=== PATIENT | male | born 1955 | race Caucasian/White ===

== ENCOUNTER 2017-03-26 14:31 | Emergency (ER) | payer BC, OTHER ==
[~2017-03-26] VITALS: Ht 182.9 cm; Wt 105.0 kg
[2017-03-26 14:42] VITALS: BP 157/93; PULSE 101; RESP 16; TEMP 99.2; O2SAT 95
[2017-03-26 15:48] LABS: BLOOD, URINE TRACE (NEG); GLUCOSE,URINE NEG (NEG); KETONE, URINE NEG (NEG); NITRITE,URINE NEG (NEG)
[2017-03-26] MEDS ORDERED: AMBI10TA PO (15:55)
[2017-03-26] MEDS ORDERED: ASPI81TA11 PO (15:55)
[2017-03-26] MEDS ORDERED: LOVA20TA PO (15:55)
[2017-03-26 16:00] LABS: URINE COLOR STRAW (YELLW/STRAW)
[2017-03-26 16:01] LABS: COMMENT (UR) CULT NOT INDICATED; RBC, URINE 0-3 /hpf (0-3); SQUAMOUS EPITHELIAL CELL URINE 0-5 /hpf (0-5)
--- NOTE | 2017-03-26 16:08 | PD ---
HPI Chief Complaint: Abdominal Pain Time Seen by Provider: 15:37 Travel History International Travel<30 days: No Contact w/Intl Traveler<30days: No Traveled to known affect area: No History of Present Illness HPI patient is a 61-year-old male presents emergency Department with left her quadrant abdominal pain for the past 2 days, mild but gradually worsening not associated with any nausea vomiting diarrhea constipation. Denies any blood in stool. Denies a history of diverticulitis and states he had colonoscopy in the past which was negative. Patient cannot think of any alleviating or exacerbating factors. PFSH Past Medical History Cancer: Yes (MELANOMA X 2) High Cholesterol: Yes Chemotherapy: No Diminished Hearing: No Kidney Stones: Yes Medical other: Yes (SLEEP DISORDER) Immunizations Current: Yes Radiation Therapy: No Past Surgical History Cardiac Surgery: Yes (ABLATION) Valve Replacement: Yes (MITRAL VALVE) Other Surgery: Yes (MELANOMA REMOVAL X 2) Social History Alcohol Use: Yes (OCCASIONAL) Tobacco Use: No (FORMER) Substance Use: No Allergies-Medications (Allergen,Severity, Reaction): Coded Allergies: No Known Allergies (Verified Allergy, Unknown, 03/26/17) Reported Meds & Prescriptions Reported Meds & Active Scripts Active Flagyl (Metronidazole) 500 Mg Tab 500 Mg PO BID 7 Days Ciprofloxacin (Ciprofloxacin HCl) 500 Mg Tab 500 Mg PO BID 7 Days Zofran (Ondansetron HCl) 4 Mg Tab 4 Mg PO Q6HR PRN Bentyl (Dicyclomine HCl) 10 Mg Cap 10 Mg PO TID PRN Reported Ambien (Zolpidem Tartrate) 10 Mg Tab 0.5 Tab PO HS PRN Aspirin EC (Aspirin) 81 Mg Tabdr 81 Mg PO DAILY Lovastatin 20 Mg Tab 20 Mg PO DAILY Review of Systems Except as stated in HPI: all other systems reviewed are Neg Physical Exam Narrative GENERAL: Well-developed well-nourished, comfortable-appearing male in no obvious distress. SKIN: Focused skin assessment warm/dry. HEAD: Atraumatic. Normocephalic. EYES: Pupils equal and round. No scleral icterus. No injection or drainage. ENT: No nasal bleeding or discharge. Mucous membranes pink and moist. NECK: Trachea midline. No JVD. CARDIOVASCULAR: Regular rate and rhythm. No murmur appreciated. RESPIRATORY: No accessory muscle use. Clear to auscultation. Breath sounds equal bilaterally. GASTROINTESTINAL: Abdomen soft, minimally tender in the left lower quadrant., nondistended. Hepatic and splenic margins not palpable. No rebound no percussive tenderness. Psoas and obturator signs negative. MUSCULOSKELETAL: No obvious deformities. No clubbing. No cyanosis. No edema. NEUROLOGICAL: Awake and alert. No obvious cranial nerve deficits. Motor grossly within normal limits. Normal speech. PSYCHIATRIC: Appropriate mood and affect; insight and judgment normal. Data Data Last Documented VS Vital Signs Date Time Temp Pulse Resp B/P (MAP) Pulse Ox O2 Delivery O2 Flow Rate FiO2 03/26/17 18:33 03/26/17 18:20 74 16 97 Room Air 03/26/17 14:42 99.2 Orders Orders Ua Includes Microscopic (03/26/17 15:21) Complete Blood Count With Diff (03/26/17 16:16) Comprehensive Metabolic Panel (03/26/17 16:16) Lipase (03/26/17 16:16) Iv Access Insert/Monitor (03/26/17 16:16) Ecg Monitoring (03/26/17 16:16) Oximetry (03/26/17 16:16) Sodium Chloride 0.9% Flush (Ns Flush) (03/26/17 16:30) Ketorolac Inj (Toradol Inj) (03/26/17 16:45) Ct Abd/Pel W Iv Contrast(Rout) (03/26/17 ) Iohexol 350 Inj (Omnipaque 350 Inj) (03/26/17 17:44) Labs Laboratory Tests Test 03/26/17 15:20 03/26/17 16:05 Urine Color STRAW Urine Turbidity CLEAR Urine pH 6.0 Urine Specific [place] 1.010 Urine Protein NEG mg/dL Urine Glucose (UA) NEG mg/dL Urine Ketones NEG mg/dL Urine Occult Blood TRACE Urine Nitrite NEG Urine Bilirubin NEG Urine Leukocyte Esterase NEG Urine RBC 0-3 /hpf Urine WBC 3-5 /hpf Urine Squamous Epithelial Cells 0-5 /hpf Microscopic Urinalysis Comment CULT NOT INDICATED White Blood Count 11.1 TH/MM3 Red Blood Count 4.86 MIL/MM3 Hemoglobin 15.2 GM/DL Hematocrit 44.9 % Mean Corpuscular Volume 92.5 FL Mean Corpuscular Hemoglobin 31.3 PG Mean Corpuscular Hemoglobin Concent 33.9 % Red Cell Distribution Width 13.8 % Platelet Count 279 TH/MM3 Mean Platelet Volume 8.1 FL Neutrophils (%) (Auto) 82.0 % Lymphocytes (%) (Auto) 11.2 % Monocytes (%) (Auto) 5.4 % Eosinophils (%) (Auto) 1.0 % Basophils (%) (Auto) 0.4 % Neutrophils # (Auto) 9.2 TH/MM3 Lymphocytes # (Auto) 1.2 TH/MM3 Monocytes # (Auto) 0.6 TH/MM3 Eosinophils # (Auto) 0.1 TH/MM3 Basophils # (Auto) 0.0 TH/MM3 CBC Comment DIFF FINAL Differential Comment Blood Urea Nitrogen 10 MG/DL Creatinine 0.72 MG/DL Random Glucose 93 MG/DL Total Protein 7.3 GM/DL Albumin 3.8 GM/DL Calcium Level 8.4 MG/DL Alkaline Phosphatase 62 U/L Aspartate Amino Transf (AST/SGOT) 14 U/L Alanine Aminotransferase (ALT/SGPT) 27 U/L Total Bilirubin 0.9 MG/DL Sodium Level 138 MEQ/L Potassium Level 3.5 MEQ/L Chloride Level 104 MEQ/L Carbon Dioxide Level 27.2 MEQ/L Anion Gap 7 MEQ/L Estimat Glomerular Filtration Rate 112 ML/MIN Lipase 92 U/L [facility] Medical Decision Making Medical Screen Exam Complete: Yes Emergency Medical Condition: Yes Differential Diagnosis Diverticulosis, diverticulitis, abdominal abscess, perforated diverticulitis. Narrative Course Patient roomed emergency department, his labs do show minimally elevated white count indicating CAT scan. Last 24 hours Impressions Abdomen/Pelvis CT 03/26/17 0000 Signed Impressions: Service Date/Time: Sunday, March 26, 2017 17:35 - CONCLUSION: 1. Moderate sigmoid diverticulitis without evidence for perforation or abscess at this time. 2. Ancillary findings include 5.2 cm cyst in segment 2 of the liver, scattered subcentimeter hypodense lesions throughout the liver that are too small to fully characterize, 2 mm nonobstructing calyceal calculus in the posterior mid left kidney, cholelithiasis, and 1.9 cm left adrenal adenoma. Vikas Giron MD Discussed the results with the patient and recommended follow-up with his primary care physician as well as a digital controls technical officer. Discussed symptomatic management antibiotic use and returned ED criteria. Diagnosis Primary Impression: Diverticulitis Qualified Codes: K57.32 - Diverticulitis of large intestine without perforation or abscess without bleeding Referrals: Bratu,Joanna S. MD Med/Other Pt SpecificInfo: Prescription(s) given Scripts Metronidazole (Flagyl) 500 Mg Tab 500 MG PO BID for Infection for 7 Days, #14 TAB 0 Refills Prov: Keon Lew MD 03/26/17 Ciprofloxacin (Ciprofloxacin) 500 Mg Tab 500 MG PO BID for Infection for 7 Days, #14 TAB 0 Refills Prov: Keon Lew MD 03/26/17 Ondansetron (Zofran) 4 Mg Tab 4 MG PO Q6HR Y for NAUSEA OR VOMITING, #20 TAB 0 Refills Prov: Keon Lew MD 03/26/17 Dicyclomine (Bentyl) 10 Mg Cap 10 MG PO TID Y for Bowel Management, #20 CAP 0 Refills Prov: Keon Lew MD 03/26/17 Disposition: 01 DISCHARGE HOME Condition: Stable Keon Lew MD Mar 26, 2017 16:08
[2017-03-26 16:10] VITALS: BP 147/92; PULSE 88; RESP 16; O2SAT 95
[2017-03-26] MEDS ORDERED: SODIUM CHLORIDE 0.9% FLUSH 10 ML FLUSH IV FLUSH PRN (16:30)
[2017-03-26 16:35] VITALS: RESP 16; O2SAT 96
[2017-03-26 16:45] LABS: AUTOMATED NEUTROPHIL # 9.2 TH/MM3 (1.8-7.7); BASOPHIL % 0.4 % (0.0-2.0); EOSINOPHIL # 0.1 TH/MM3 (0-0.4); HEMATOCRIT 44.9 % (39.0-51.0); HEMO FLAGS DIFF FINAL; LYMPH % 11.2 % (9.0-44.0); LYMPHOCYTE # 1.2 TH/MM3 (1.0-4.8); MEAN CELL VOLUME 92.5 FL (80.0-100.0); MEAN CORPUSCULAR HEMOGLOBIN 31.3 PG (27.0-34.0); MEAN CORPUSCULAR HGB CONC 33.9 % (32.0-36.0); MONO % 5.4 % (0.0-8.0); PLATELET COUNT 279 TH/MM3 (150-450); RED BLOOD COUNT 4.86 MIL/MM3 (4.50-5.90); RED CELL DISTRIBUTION WIDTH 13.8 % (11.6-17.2); WHITE BLOOD COUNT 11.1 TH/MM3 (4.0-11.0)
[2017-03-26] MEDS ORDERED: KETOROLAC TROMETHAMINE 30 MG/ML (IVP) VIAL IV PUSH ONE (16:45)
[2017-03-26 16:51] LABS: CHLORIDE 104 MEQ/L (98-107); POTASSIUM 3.5 MEQ/L (3.5-5.1); SODIUM (NA) 138 MEQ/L (136-145)
[2017-03-26 16:55] LABS: ANION GAP 7 MEQ/L (5-15); BICARBONATE 27.2 MEQ/L (21.0-32.0); BLOOD UREA NITROGEN 10 MG/DL (7-18)
[2017-03-26 16:58] LABS: ALT (GPT) 27 U/L (12-78); AST (GOT) 14 U/L (15-37); GLOMERULAR FILTRATION RATE 112 ML/MIN (>89)
[2017-03-26 16:59] LABS: TOTAL BILIRUBIN ADULT 0.9 MG/DL (0.2-1.0)
[2017-03-26 17:01] LABS: ALKALINE PHOSPHATASE 62 U/L (45-117)
[2017-03-26 17:10] VITALS: BP 143/78; PULSE 77; RESP 16; O2SAT 97
[2017-03-26] MEDS ORDERED: IOHEXOL 350 MG/ML 10 ML VIAL (for RAD DIAG) IVCONTRAST ONE (17:44)
--- NOTE | 2017-03-26 18:00 | RADRPT ---
EXAM DATE/TIME: 03/26/2017 17:35 [facility] COMPARISON: No previous studies available for comparison. INDICATIONS : Mid abdominal pain. IV CONTRAST: 95 cc Omnipaque 350 (iohexol) IV ORAL CONTRAST: No oral contrast ingested. RADIATION DOSE: 20.53 CTDIvol (mGy) MEDICAL HISTORY : Cardiovascular disease. Melanoma. SURGICAL HISTORY : Cardiac ablation. ENCOUNTER: Initial ACUITY: 2 days PAIN SCALE: 5/10 LOCATION: abdomen TECHNIQUE: Volumetric scanning of the abdomen and pelvis was performed. Using automated exposure control and ad justment of the mA and/or kV according to patient size, radiation dose was kept as low as reasonably achievable to obtain optimal diagnostic quality images. DICOM format image data is available electro nically for review and comparison. FINDINGS: LOWER LUNGS: The visualized lower lungs are clear. LIVER: There is a 5.2 x 4.7 cm cyst in segment 2 of the liver. Additional scattered subcentimeter hypodense lesions throughout the liver are too small to characterize. No significant intrapelvic ductal dilatat ion or evidence for volume loss. Gallstones are noted in the gallbladder which otherwise appears unre markable by CT. SPLEEN: Normal size without lesion. PANCREAS: Within normal limits. KIDNEYS: Kidneys demonstrate symmetrical enhancement without evidence of hydronephrosis. There is a small 2 mm nonobstructing calyceal calculus in the posterior mid left kidney. ADRENAL GLANDS: 1.9 cm low density left adrenal mass consistent with adrenal adenoma. Right adrenal gland is normal i n appearance. VASCULAR: There is no aortic aneurysm. BOWEL/MESENTERY: There is moderate diverticulosis of the sigmoid colon with associated perisigmoid inflammatory strand ing in the mid lower anterior pelvis. No significant drainable fluid collection or free air at this t sonido. Scattered colonic articular noted in the descending colon. Bowel is otherwise unremarkable. ABDOMINAL WALL: Within normal limits. RETROPERITONEUM: There is no lymphadenopathy. BLADDER: No wall thickening or mass. REPRODUCTIVE: Within normal limits. INGUINAL: There is no lymphadenopathy or hernia. MUSCULOSKELETAL: Within normal limits for patient age. CONCLUSION: 1. Moderate sigmoid diverticulitis without evidence for perforation or abscess at this time. 2. Ancillary findings include 5.2 cm cyst in segment 2 of the liver, scattered subcentimeter hypodens e lesions throughout the liver that are too small to fully characterize, 2 mm nonobstructing calyceal calculus in the posterior mid left kidney, cholelithiasis, and 1.9 cm left adrenal adenoma. Vikas Giron MD on March 26, 2017 at 17:53 Board Certified Radiologist. This report was verified electronically.
[2017-03-26] MEDS ORDERED: ZOFR4TAB PO (18:05)
[2017-03-26] MEDS ORDERED: CIPR500T2 PO (18:05)
[2017-03-26] MEDS ORDERED: METR-1 PO (18:05)
[2017-03-26] MEDS ORDERED: DICY10 PO (18:05)
[2017-03-26 18:20] VITALS: BP 132/77; PULSE 74; RESP 16; O2SAT 97
== END 2017-03-26 18:34 | disposition home or self-care (01) ==
LOC: PHED 14:31
DX: K57.32 Diverticulitis of large intestine without perforation or abscess without bleeding (principal); E78.5 Hyperlipidemia, unspecified; Z87.442 Personal history of urinary calculi; Z87.891 Personal history of nicotine dependence; Z79.82 Long term (current) use of aspirin
CPT/HCPCS: 74177; 80053; 81001; 83690; 85025; 96374; 99285; J1885; Q9967